=== PATIENT | male | born 1945 | race Two or more races ===

== ENCOUNTER 2017-04-12 15:01 | Emergency (ER) | payer MEDICAID, OTHER ==
[~2017-04-12] VITALS: Ht 154.9 cm; Wt 72.6 kg
[2017-04-12] MEDS ORDERED: KETOROLAC TROMETH 60MG/2ML VIAL IM ONE (17:30)
[2017-04-12] MEDS ORDERED: cefTRIAXone SOD 1,000 MG VL IM ONE (17:30)
[2017-04-12] MEDS ORDERED: TETANUS-DIPTH-ACEL PERTUSSIS 0.5ML SYRG IM ONE (17:30)
[2017-04-12] MEDS ORDERED: LIDOCAINE 1% HCL (LOCAL ANESTH.) INJ 20ML MDV IJ ONE (17:30)
[2017-04-12 18:46] VITALS: BP 165/84
[2017-04-12] MEDS ORDERED: NEOMYCIN-BACITRACIN-POLYM 15GM TOP OINT TOP ONE (19:00)
== END 2017-04-12 19:12 | disposition home or self-care (01) ==
LOC: ER 15:07
DX: S62.630A Displaced fracture of distal phalanx of right index finger, initial encounter for closed fracture (principal); S61.210A Laceration without foreign body of right index finger without damage to nail, initial encounter; E11.9 Type 2 diabetes mellitus without complications; I10 Essential (primary) hypertension; W26.0XXA Contact with knife, initial encounter; Y93.89 Activity, other specified; Y99.8 Other external cause status; Y92.89 Other specified places as the place of occurrence of the external cause; Z23 Encounter for immunization
CPT/HCPCS: 12002; 29130; 73130; 90471; 90715; 96372; 99284; J0696; J1885; J2001

== ENCOUNTER 2017-04-14 12:02 | Emergency (ER) | payer MEDICAID ==
[~2017-04-14] VITALS: Ht 167.6 cm; Wt 71.8 kg
[2017-04-14 14:19] VITALS: BP 154/70
== END 2017-04-14 16:11 | disposition home or self-care (01) ==
LOC: ER 12:10
DX: S61.011D Laceration without foreign body of right thumb without damage to nail, subsequent encounter (principal); E11.9 Type 2 diabetes mellitus without complications; I10 Essential (primary) hypertension; Z48.02 Encounter for removal of sutures